=== PATIENT | female | born 1985 | race Asian ===

== ENCOUNTER 2018-06-13 02:56 | Emergency (ER) | payer OTHER ==
[~2018-06-13] VITALS: Ht 144.8 cm; Wt 83.6 kg
[2018-06-13 02:58] VITALS: BP 165/81
--- NOTE | 2018-06-13 03:10 | ED.ADGEN ---
Adult General Chief Complaint Chief Complaint ".. I fractured this tooth about 6 months ago.. ..and I did not follow up... but now it is killing me tonight....and my jaw is swollen..." HPI HPI Patient is a 33 year old female who presents with above hx and complaints of dental pain. She localizes the pain to tooth #18 . Has obvious fracture of the molar into the gum with dental decay into the gum. Does have surrounding gingivitis, inflammation, and edema. No pointing abscess. Does have left mandible tenderness and adenopathy. No trismus. Patient denies any history of immunosuppression. Patient denies any other health issues. Review of Systems Review of Systems Constitutional: Denies fever or chills [] Eyes: Denies change in visual acuity, redness, or eye pain [] HENT: Denies nasal congestion or sore throat []complains of dental pain Respiratory: Denies cough or shortness of breath [] Cardiovascular: No additional information not addressed in HPI [] GI: Denies abdominal pain, nausea, vomiting, bloody stools or diarrhea [] : Denies dysuria or hematuria [] Musculoskeletal: Denies back pain or joint pain [] Integument: Denies rash or skin lesions [] Neurologic: Denies headache, focal weakness or sensory changes [] Endocrine: Denies polyuria or polydipsia [] All other systems were reviewed and found to be within normal limits, except as documented in this note. Family History Family History Noncontributory Current Medications Current Medications Current Medications Medications (Trade) Dose Ordered Sig/Karla Start Time Stop Time Status Last Admin Dose Admin Ceftriaxone Sodium (Rocephin Im) 1 gm 1X ONCE 06/13/18 03:30 06/13/18 03:31 DC 06/13/18 03:29 1 GM Ketorolac Tromethamine (Toradol Im) 60 mg 1X ONCE 06/13/18 03:30 06/13/18 03:31 DC 06/13/18 03:29 60 MG Lidocaine HCl 20 ml STK-MED ONCE 06/13/18 03:19 06/13/18 03:20 DC Oxycodone/ Acetaminophen (Percocet 5/325) 2 tab 1X ONCE 06/13/18 03:30 06/13/18 03:31 DC 06/13/18 03:29 2 TAB See nursing for home meds Allergies Allergies Allergies Coded Allergies Type Severity Reaction Last Updated Verified tramadol Allergy Unknown 06/13/18 Yes Physical Exam Physical Exam Constitutional: In acute distress, non-toxic appearance. [] HENT: Normocephalic, atraumatic, bilateral external ears normal, oropharynx moist, no oral exudates, nose normal. []Dental decay. Focal area of left molar #18-pain as per history of present illness. Mandible tenderness. Adenopathy and swelling. Eyes: PERRLA, EOMI, conjunctiva normal, no discharge. [] Neck: Normal range of motion, no tenderness, supple, no stridor. [] Cardiovascular:Heart rate regular rhythm, no murmur [] Lungs & Thorax: Bilateral breath sounds equal apex auscultation [] Abdomen: Bowel sounds normal, soft, no tenderness, no masses, no pulsatile masses. [] Obese. Skin: Warm, dry, no erythema, no rash. [] Back: No tenderness, no CVA tenderness. [] Extremities: No tenderness, no cyanosis, no clubbing, ROM intact, no edema. [] Neurologic: Alert and oriented X 3, normal motor function, normal sensory func tion, no focal deficits noted. [] Psychologic: Affect normal, judgement normal, mood normal. [] Current Patient Data Vital Signs Vital Signs Date Time Temp Pulse Resp B/P (MAP) Pulse Ox O2 Delivery O2 Flow Rate FiO2 06/13/18 02:58 98.6 85 24 98 Room Air EKG EKG [] Radiology/Procedures Radiology/Procedures [] Course & Med Decision Making Course & Med Decision Making Pertinent Labs and Imaging studies reviewed. (See chart for details) Patient must follow-up with dentist. Advised patient nothing we do in the emergency room tonight we'll fix the underlying problem. Patient to take Keflex 500 mg 3 times a day. Take Tylenol and ibuprofen for pain. For marked pain may take Vicoprofen up 4 times a day. Follow-up primary care follow-up with Dentist.. Return if any concerns. [] Final Impression Final Impression 1. Dental pain 2. Dental infection 3. Fractured tooth 18[] Dragon Disclaimer Dragon Disclaimer This electronic medical record was generated, in whole or in part, using a voice recognition dictation system. Discharge Summary Visit Information Final Diagnosis Problems Medical Problems: (1) Pain due to dental caries Status: Acute Brief Hospital Course Allergies Allergies Coded Allergies Type Severity Reaction Last Updated Verified tramadol Allergy Unknown 06/13/18 Yes Vital Signs Vital Signs Date Time Temp Pulse Resp B/P (MAP) Pulse Ox O2 Delivery O2 Flow Rate FiO2 06/13/18 02:58 98.6 85 24 98 Room Air Brief Hospital Course Ms. Spence is a 33 old female who presented with dental pain. Discharge Information Condition at Discharge: Improved, Stable Disposition/Orders: D/C to Home Dischare Medications Current Medications Ketorolac Tromethamine (Toradol Im) 60 mg 1X ONCE IM Last administered on 06/13/18at 03:29; Admin Dose 60 MG; Start 06/13/18 at 03:30; Stop 06/13/18 at 03:31; Status DC Ceftriaxone Sodium (Rocephin Im) 1 gm 1X ONCE IM Last administered on 06/13/18at 03:29; Admin Dose 1 GM; Start 06/13/18 at 03:30; Stop 06/13/18 at 03:31; Status DC Oxycodone/ Acetaminophen (Percocet 5/325) 2 tab 1X ONCE PO Last administered on 06/13/18at 03:29; Admin Dose 2 TAB; Start 06/13/18 at 03:30; Stop 06/13/18 at 03:31; Status DC Lidocaine HCl 20 ml STK-MED ONCE .ROUTE ; Start 06/13/18 at 03:19; Stop 06/13/18 at 03:20; Status DC Active Scripts Active Keflex (Cephalexin) 500 Mg Capsule 500 Mg PO TID Hydrocodone-Ibuprofen 7.5-200 (Hydrocodone/Ibuprofen) 1 Each Tablet 1 Tab PO PRN Q6HRS PRN Dragon Disclaimer This chart was dictated in whole or in part using Voice Recognition software in a busy, high-work load, and often noisy Emergency Department environment. It may contain unintended and wholly unrecognized errors or omissions. JASON RUBIN MD Jun 13, 2018 03:10
[2018-06-13] MEDS ORDERED: CEPH-264 PO (03:19)
[2018-06-13] MEDS ORDERED: HYDR-1179 PO (03:19)
[2018-06-13] MEDS ORDERED: LIDOCAINE 1% Multi-Dose 20 ML VIAL. ONE (03:19)
[2018-06-13] MEDS ORDERED: KETOROLAC 60 MG/2 ML VIAL. IM ONE (03:30)
[2018-06-13] MEDS ORDERED: cefTRIAXone IM 1 GM VIAL IM ONE (03:30)
[2018-06-13] MEDS ORDERED: oxyCODONE/APAP 5/325 1 TAB TABLET PO ONE (03:30)
== END 2018-06-13 03:40 | disposition home or self-care (01) ==
LOC: ER 02:56
DX: S02.5XXA Fracture of tooth (traumatic), initial encounter for closed fracture (principal); K02.9 Dental caries, unspecified; K05.10 Chronic gingivitis, plaque induced; Z88.6 Allergy status to analgesic agent; X58.XXXA Exposure to other specified factors, initial encounter; Y93.89 Activity, other specified; Y92.89 Other specified places as the place of occurrence of the external cause; Y99.8 Other external cause status
CPT/HCPCS: 96372; 99284; J0696; J1885